=== PATIENT | male | born 1995 | race Caucasian/White ===

== ENCOUNTER 2019-12-02 17:45 | Emergency (ER) | payer OTHER, SELFPAY ==
--- NOTE | ~2019-12-02 | XR_ITS ---
EXAMINATION: XR thoracic spine 3V DATE: 12/02/2019 18:49 INDICATION: Upper back pain TECHNIQUE: AP, lateral and lateral swimmer's views of the thoracic spine were obtained. COMPARISON: None. FINDINGS: There is no fracture, dislocation, or subluxation. The vertebral body heights, alignment, a nd intervertebral disc spaces are normal. The paravertebral soft tissues are unremarkable. IMPRESSION: 1. No acute osseous abnormality. Reviewed, dictated and finalized at location A.
--- NOTE | 2019-12-02 17:57 | ED.GENADULT ---
HPI - General Adult General Chief complaint: Neck Pain/Injury Stated complaint: Stages of numbness Time Seen by Provider: 12/02/19 17:58 Source: patient Mode of arrival: ambulatory Limitations: no limitations History of Present Illness HPI narrative: 23-year-old male patient presents to the [facility] with complaints of neck and back pain for the past week. Patient states he was also getting a sensation of numbness and tingling over his entire body which was concerning. Patient states about a week ago he was sitting at his computer and felt what he called a pop It his brain . Patient states that he googled his symptoms and was concerned about an aneurysm and went to [facility] emergency department at that time and got a head neck CT which he was told was negative and looked okay. Patient states that he does a lot of wrestling and is very active during the day. 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 Patient states he has injured his neck and has had multiple neck sprains in the past along with chronic back injuries and some concussions in the past. Patient denies any new injury recently since his pain has started. Patient states he still having the numbness and tingling pain all over his body. Patient denies taking anything for his symptoms. Patient states that he does have back pain at times. Related Data Home Medications Medication Instructions Recorded Confirmed No Home Medications 12/02/19 12/02/19 Allergies Allergy/AdvReac Type Severity Reaction Status Date / Time No Known Allergies Allergy Verified 12/02/19 18:16 Review of Systems Review of Systems: Narrative: CONSTITUTIONAL: Denies fever, chills, or sweats. EYES: Denies visual changes, redness, or discharge. ENT: Denies rhinorrhea, congestion, sore throat, or otalgia. CARDIOVASCULAR: Denies chest pain, palpitations, or edema. RESPIRATORY: Denies cough or dyspnea. GASTROINTESTINAL: Denies abdominal pain, nausea, vomiting, or diarrhea. GENITOURINARY: Denies dysuria or hematuria. SKIN: Denies rash or itching. MUSCULOSKELETAL: Positive back pain, denies joint pain, or myalgia. NEUROLOGIC: Denies headache, positive intermittent numbness, and weakness. PSYCHIATRIC: Denies anxiety or depression. PMFSH Comments At the time of my signature I agree with nursing past medical history, surgical, social, and family history. There is no relevant family history pertinent to the presenting complaint. Exam Narrative: Exam Narrative: GENERAL: Well-appearing, well-nourished, and in no acute distress. HEAD: Normocephalic, atraumatic. EYES: PERRLA and EOMI. ENT: Nares clear, no rhinorrhea or epistaxis. Mucous membranes moist. NECK: Supple. No lymphadenopathy CHEST: Clear to auscultation. No respiratory distress. HEART: Regular rate and rhythm. No murmur heard. Normal peripheral pulses. ABDOMEN: Soft, nontender, nondistended, normal active bowel sounds. EXTREMITIES: Normal range of motion. No edema. BACK: Patient is able to ambulated without assistance. Pt is seated on the stretcher in no obvouis distress. No surface trauma noted. muscle tenderness and spasm noted to Palpation along the left scapular area. Patient does have some popping to the thoracic spine with movement and manipulation which he states does cause some of his symptoms to return at times no step-offs or deformity noted to the cervical, thoracic or lumbar spine to firm Palpation at the midline. No CVA tenderness to percussion. No saddle anesthesia. ROM: able to stand erect. Normal flexion, extension, Lateral bending and rotation without limitation or complaint of pain. SKIN: Warm, dry, no rash. NEURO: No focal deficits. Alert and oriented x3. Course Reevaluation(s) Reevaluation #1: Reevaluated patient after his x-ray had resulted. Notified him that there is no acute abnormalities noted in the x-ray today. Discussed with patient that on exam we did notice some muscle spasms w
[2019-12-02 17:58] VITALS: BP 116/53; PULSE 62; RESP 16; TEMP 36.7; O2SAT 100
== END 2019-12-02 19:25 | disposition home or self-care (01) ==
PROVIDERS: Emergency Provider Nurse Practitioner Family
DX: M62.830 Muscle spasm of back (principal)
CPT/HCPCS: 72072; 99213; G0463

== ENCOUNTER 2022-09-05 17:55 | Emergency (ER) | payer MEDICAID, SELFPAY ==
--- NOTE | ~2022-09-05 | XR_ITS ---
EXAMINATION: XR thoracic spine 3V DATE: 09/05/2022 19:22 INDICATION: Back pain. TECHNIQUE: 3 views of thoracic spine on 4 radiographs were obtained. COMPARISON: Thoracic spine radiographs 12/02/2019 FINDINGS: There is 10 degrees levoscoliosis of thoracic spine. Vertebral body heights and interverteb ral disc heights are normal. A staple line overlies right lung upper lobe. IMPRESSION: 1. Thoracic levoscoliosis. Reviewed, dictated and finalized at location A. RETE FOREMAN IMPRESSION: 1. Thoracic levoscoliosis.
--- NOTE | ~2022-09-05 | XR_ITS ---
EXAMINATION: XR ribs LT 2V DATE: 09/05/2022 19:22 INDICATION: Back pain. TECHNIQUE: 2 views of the left ribs on 3 radiographs were obtained. COMPARISON: None. FINDINGS: There is no left-sided pneumonia, pleural effusion, or pneumothorax. The heart size is norm al. IMPRESSION: 1. No rib fracture. Reviewed, dictated and finalized at location A. T END MECHANIC IMPRESSION: 1. No rib fracture.
[2022-09-05 18:10] VITALS: BP 120/71; PULSE 74; RESP 16; TEMP 37.2; O2SAT 99
--- NOTE | 2022-09-05 18:59 | ED.BACK ---
HPI - Back Pain/Injury General Chief Complaint: Back Pain/Injury Stated Complaint: Called for back X ray Time Seen by Provider: 09/05/22 18:25 Source: patient, RN notes reviewed and old records reviewed Mode of arrival: ambulatory Limitations: no limitations History of Present Illness HPI Narrative: 26 year old male presents to [facility] care with complaints of left flank pain and mid back pain which started last night. Patient reports that when he moves a certain way he has pain in the left flank region. Patient reports that he has had a kidney stone in past about 2020. Patient reports that he wrestles and he also rides dirt bikes, has not had any known injury to his back or to rib area. Patient denies any radiation of pain down legs or any numbness or tingling to legs, no saddle paraesthesia, no difficulty passing urine or stool. Patient has no midline spinal pain or any paraspinal tenderness on palpation MD elicited complaint: back pain and other (left flank area) Pertinent past history: kidney stones and other (previous rib fracture on right with punctured lung) Onset (ago): day(s) (last night) Treatments prior to arrival: NSAIDS Work related injury: No Related Data Allergies Allergy/AdvReac Type Severity Reaction Status Date / Time No Known Allergies Allergy Verified 09/05/22 18:21 Review of Systems Review of Systems: CONSTITUTIONAL: Denies fever, chills, or sweats. CARDIOVASCULAR: Denies chest pain, palpitations, or edema. RESPIRATORY: Denies cough or dyspnea. GASTROINTESTINAL: Denies abdominal pain, nausea, vomiting, or diarrhea. GENITOURINARY: Denies dysuria or hematuria. SKIN: Denies rash or itching. MUSCULOSKELETAL: Reports thoracic back pain. left flank pain, no joint pain or myalgia. NEUROLOGIC: Denies headache, numbness, or weakness. All systems reviewed & are unremarkable except as noted in HPI and below PMFSH Past Medical History Medical History (Updated 09/06/22 @ 00:00 by Julián Kirkpatrick) Anxiety Fracture of rib of right side Pneumothorax Surgical History Surgical History [place] teeth extracted Social History Social History (Updated 09/06/22 @ 11:06 by Jeny Lal NP) Smoking status: Former smoker Alcohol intake: unknown Substance use type: marijuana Gender identity (if verbalized by the patient): Male Comments At time of signature, agree with nursing past medical, surgical, social and family history. There is no relevant family history pertinent to the presenting complaint Exam Narrative: GENERAL: Well-appearing, well-nourished, and in no acute distress. HEAD: Normocephalic, atraumatic. EYES: PERRLA and EOMI. NECK: Supple. No lymphadenopathy. CHEST: Clear to auscultation. No respiratory distress. SAO2 99% on room air HEART: Regular rate and rhythm. Distal pulses palpable and equal, cap refill <3 seconds ABDOMEN: Soft, nontender, nondistended, normal active bowel sounds, no palpable or pulsatile masses. No CVA tenderness MUSCULOSKELETAL: Normal range of motion and strength in all extremities; 5/5 strength with hip flexion and extension, dorsiflexion and extension, knee flexion and extension, plantar flexion and extension. Normal sensation in dermatomal distributions with sensitivity to light touch and pain. No midline back tenderness to palpation. No paraspinal tenderness. Transfers from lying to sitting to standing.Pain mid back area and left flank pain, reports muscle tightness SKIN: Warm, dry, no rash. No ecchymosis, erythema, open wounds to back. NEURO: No focal deficits. Alert and oriented x3. Reflexes intact. Normal gait. PSYCH: Normal mood and affect Course Course Emergency Course: Patient is aware of diagnosis, understands and agrees to treatment plan. Anticipatory guidance given. Patient agrees to follow-up as directed and is aware of reasons to seek care at the emergency department. Portions of
== END 2022-09-05 19:45 | disposition home or self-care (01) ==
PROVIDERS: Emergency Provider Registered Nurse; PCP Family Medicine
DX: M54.6 Pain in thoracic spine (principal); R10.9 Unspecified abdominal pain; F12.90 Cannabis use, unspecified, uncomplicated
CPT/HCPCS: 71100; 72072; 81003; 99214; G0463

== ENCOUNTER 2022-12-26 18:31 | Emergency (ER) | payer OTHER, MEDICAID, SELFPAY ==
[2022-12-26 18:39] VITALS: BP 101/82; PULSE 69; RESP 16; TEMP 37.1; O2SAT 99
--- NOTE | 2022-12-26 18:47 | ED.DENTAL ---
HPI - Dental/Oral General Chief complaint: Dental/Oral Stated complaint: mouth and jaw pain Time Seen by Provider: 12/26/22 18:45 Source: patient, RN notes reviewed and old records reviewed Mode of arrival: ambulatory Limitations: no limitations History of Present Illness HPI Narrative: 26 year old male who presents to [facility] care with complaints of dental pain and Periodontal disease and frontal head pain. Patient states that dental pain is causing an explosion in his head. Patient states that he has had pain in his right back molars for 5 days with a hole noted in the very posterior tooth #31. Patient has noted periodontal disease and patient reports that he has had problems in his gums for some time.Patient reports that he has been taking Ibuprofen and also Tylenol for his discomfort with minimal pain relief. MD Complaint: tooth pain (periodontal disease) Onset (ago): day(s) (5) Treatment prior to arrival: oral analgesic Related Data Allergies Allergy/AdvReac Type Severity Reaction Status Date / Time No Known Allergies Allergy Verified 12/26/22 18:43 Review of Systems Review of Systems: CONSTITUTIONAL: Denies fever, chills, or sweats. ENT: Denies rhinorrhea, congestion, sore throat, or otalgia. Reports dental pain to lower right back molar with hole noted in tooth. also pain swelling to upper left gums,evidence of periodontal disease present. CARDIOVASCULAR: Denies chest pain, palpitations, or edema. RESPIRATORY: Denies cough or dyspnea. SKIN: Denies rash or itching. MUSCULOSKELETAL: Denies myalgia. NEUROLOGIC: Reports headache All systems reviewed & are unremarkable except as noted in HPI and below PMFSH Past Medical History Medical History (Updated 12/27/22 @ 00:01 by Julián Kirkpatrick) Anxiety Fracture of rib of right side Pneumothorax Surgical History Surgical History [place] teeth extracted Social History Social History (Updated 09/06/22 @ 11:06 by Jeny Lal NP) Smoking status: Former smoker Alcohol intake: unknown Substance use type: marijuana Gender identity (if verbalized by the patient): Male Comments At time of signature, agree with nursing past medical, surgical, social and family history. There is no relevant family history pertinent to the presenting complaint Exam Narrative: GENERAL: Well-appearing, well-nourished, and in no acute distress. HEAD: Normocephalic, atraumatic. EYES: PERRLA and EOMI. ENT: Nares clear, no rhinorrhea or epistaxis. Mucous membranes moist. broken teeth, caries noted with hole noted in #31 tooth, periodontal disease noted to gums with pain and swelling to left upper gums NECK: Supple. no lymphadenopathy, no [place] angina, no trismus noted. CHEST: Clear to auscultation. No respiratory distress.SAO2 99% on room air HEART: Regular rate and rhythm. No murmur heard. Normal peripheral pulses. SKIN: Warm, dry, no rash. NEURO: No focal deficits. Alert and oriented x3. Course Course Emergency Course: Patient is aware of diagnosis, understands and agrees to treatment plan. Anticipatory guidance given. Patient agrees to follow-up as directed and is aware of reasons to seek care at the emergency department. Portions of this record may have been created with voice recognition software Level of Care: Express Care Visit Vital Signs Vital signs: Vital Signs Temperature 37.1 C 12/26/22 18:39 Pulse Rate 69 12/26/22 18:39 Respiratory Rate 16 12/26/22 18:39 Blood Pressure 101/82 12/26/22 18:39 Pulse Oximetry 99 12/26/22 18:39 Oxygen Delivery Room Air 12/26/22 18:39 Temperature 37.1 C 12/26/22 18:39 Pulse Rate 69 12/26/22 18:39 Respiratory Rate 16 12/26/22 18:39 Blood Pressure 101/82 12/26/22 18:39 Pulse Oximetry 99 12/26/22 18:39 Oxygen Delivery Room Air 12/26/22 18:39 Reviewed MDM - Dental/Oral MDM Narrative Medical decision making narrative:
== END 2022-12-26 19:13 | disposition home or self-care (01) ==
PROVIDERS: Emergency Provider Registered Nurse
DX: K08.89 Other specified disorders of teeth and supporting structures (principal); K05.6 Periodontal disease, unspecified
CPT/HCPCS: 99213; G0463

== ENCOUNTER 2023-01-06 09:58 | Emergency (ER) | payer OTHER, MEDICAID, SELFPAY ==
--- NOTE | ~2023-01-06 | XR_ITS ---
XR humerus RT 01/06/2023 10:21 INDICATION: Right arm pain PROCEDURE: 2 views right humerus COMPARISON: No prior studies for comparison. FINDINGS: Fracture, dislocation or subluxation is not identified. The soft tissues appear within norm al limits. No foreign bodies are identified. IMPRESSION: 1: NO ACUTE BONE OR JOINT ABNORMALITY IDENTIFIED. Reviewed, dictated and finalized at location L.
[2023-01-06 10:03] VITALS: BP 119/66; PULSE 56; RESP 16; TEMP 36.3; O2SAT 100
--- NOTE | 2023-01-06 10:22 | ED.UPPEXIN ---
HPI - Extremity Injury (Upper) General Chief Complaint: Extremity Injury, Upper Stated Complaint: right bicept injury Source: patient and RN notes reviewed Limitations: no limitations History of Present Illness HPI narrative: Patient is a 27-year-old male with complaints of right upper arm pain. Patient states that his pain started after lifting a night stand on Thursday. He reports constant soreness with worsening pain with movement and positioning of his arm. Patient states that he believes he injured his bicep. He denies numbness; sensation is intact. He denies limited range of motion of his right shoulder, elbow, or wrist. There is no notable swelling or deformity. Related Data Allergies Allergy/AdvReac Type Severity Reaction Status Date / Time No Known Allergies Allergy Verified 12/26/22 18:43 Review of Systems Review of Systems: CONSTITUTIONAL: Denies fever, chills, or sweats. EYES: Denies visual changes, redness, or discharge. ENT: Denies otalgia and sore throat CARDIOVASCULAR: Denies chest pain, palpitations, or edema. RESPIRATORY: Denies cough or dyspnea. GASTROINTESTINAL: Denies abdominal pain, nausea, vomiting, or diarrhea. GENITOURINARY: Denies dysuria or hematuria. SKIN: Denies rash or itching. MUSCULOSKELETAL: Denies back pain. Reports right upper arm pain. NEUROLOGIC: Denies headache, numbness, or weakness. Pertinent positives per HPI. PMFSH Past Medical History Medical History Anxiety Fracture of rib of right side Pneumothorax Surgical History Surgical History [place] teeth extracted Social History Social History Smoking status: Former smoker Alcohol intake: unknown Substance use type: marijuana Gender identity (if verbalized by the patient): Male Comments At the time of my signature, I reviewed and agree with the nursing past medical, surgical, social, and family history. There is no relevant family history pertinent to the patient complaint. Exam Narrative: GENERAL: This is a well-nourished, well-developed patient, in no apparent distress. HEAD: normocephalic, atraumatic. EYES: Sclera clear/white. Vision is grossly intact. EARS: External ears normal. Hearing grossly intact. NOSE: External nose normal with no obvious nasal discharge, nares without redness, no rhinorrhea. THROAT: Mucous membranes moist, posterior pharynx clear. NECK: Neck supple, non-tender without lymphadenopathy, masses or thyromegaly. CARDIOVASCULAR: Regular rate and rhythm without murmurs, gallops, or rubs. RESPIRATORY: Clear to auscultation. Breath sounds equal bilaterally. No wheezes, rales, or rhonchi. GASTROINTESTINAL: Abdomen soft, non-tender, nondistended. Bowel sounds are active. No hepato-splenomegaly, or palpable masses. No guarding. SKIN: warm, intact with no suspicious lesions or rash, good texture and turgor. NEURO: awake, alert, and oriented to person, place and time. There were no obvious focal neurologic abnormalities. EXTREMITIES: No clubbing, cyanosis, or edema. Right lateral arm tenderness, no effusion or edema noted. Sensation intact. Patient has full range of motion of right shoulder, elbow, wrist. BACK: Nontender without deformity or crepitance. No flank tenderness. Course Course Level of Care: Express Care Visit Vital Signs Vital signs: Vital Signs Temperature 97.4 F L 01/06/23 10:03 Pulse Rate 56 L 01/06/23 10:03 Respiratory Rate 16 01/06/23 10:03 Blood Pressure 119/66 01/06/23 10:03 Pulse Oximetry 100 01/06/23 10:03 Oxygen Delivery Room Air 01/06/23 10:03 Temperature 97.4 F L 01/06/23 10:03 Pulse Rate 56 L 01/06/23 10:03 Respiratory Rate 16 01/06/23 10:03 Blood Pressure 119/66 01/06/23 10:03 Pulse Oximetry 100 01/06/23 10:03 Oxygen Delivery Room Air 01/06/23 10:03 rev
== END 2023-01-06 10:56 | disposition home or self-care (01) ==
PROVIDERS: Emergency Provider Nurse Practitioner; PCP Family Medicine
DX: S46.111A Strain of muscle, fascia and tendon of long head of biceps, right arm, initial encounter (principal); X50.0XXA Overexertion from strenuous movement or load, initial encounter
CPT/HCPCS: 73060; 99213; A4565; G0463

== ENCOUNTER 2024-01-23 14:04 | Emergency (ER) | payer OTHER, SELFPAY ==
[2024-01-23 14:18] VITALS: BP 129/86; PULSE 63; RESP 16; TEMP 37.4; O2SAT 100
--- NOTE | 2024-01-23 14:27 | ED.DENTAL ---
HPI - Dental/Oral General Chief complaint: Dental/Oral Stated complaint: Toothache Time Seen by Provider: 01/23/24 14:27 Source: patient, RN notes reviewed and old records reviewed Mode of arrival: ambulatory Limitations: no limitations History of Present Illness HPI Narrative: 28-year-old male to Express Care for complaint of right lower molar pain for 3 days. Patient endorses history of having same tooth fractured while back while wrestling. Patient states that pain just started 3 days ago. [facility]. Patient called the dental school to inquire about getting appointment soon and was unable to. After the dental school advised him to be seen here for treatment. Patient denies fever, nausea, headache, ear pain. Patient able to tolerate fluids by mouth. Patient in no acute distress. Related Data Allergies Allergy/AdvReac Type Severity Reaction Status Date / Time No Known Allergies Allergy Verified 01/23/24 14:17 Review of Systems Review of Systems: All systems reviewed & are unremarkable except as noted in HPI and below Constitutional: Constitutional: Reports no additional constitutional complaints Eyes: Eyes: Reports no additional eye complaints ENT: Reports as per HPI and Reports dental pain ( Lower right molar) Cardiovascular: Cardiovascular: Reports no additional cardiovascular complaints, Denies chest pain and Denies dyspnea Respiratory: Respiratory: Reports no additional respiratory complaints, Denies cough and Denies dyspnea Musculoskeletal: Musculoskeletal: Reports no additional musculoskeletal complaints Neurologic: Reports system reviewed and no additional complaints, except as documented Psychiatric: Psychiatric: Reports no additional psychiatric complaints PMFSH Past Medical History Medical History Anxiety Fracture of rib of right side Pneumothorax Surgical History Surgical History [place] teeth extracted Social History Social History Smoking status: Former smoker Alcohol intake: unknown Substance use type: marijuana Gender identity (if verbalized by the patient): Male Comments At the time of my signature, I reviewed and agree with the nursing past medical, surgical, social, and family history. There is no relevant family history pertinent to the patient complaint. Exam Const: General: cooperative, healthy appearing, comfortable, no acute distress, alert and well nourished Nutritional Appearance: well nourished Orientation/consciousness: patient oriented x3 Limitations: no limitations HENMT: Head: normal to inspection Ears: external ears normal Face/Nose/Sinus: Normal external nose present, Normal nares present, normal facial exam, No erythema and No edema Face and sinus: normal facial exam, no erythema and no edema Mouth: Yes moist mucous membranes Teeth and gingiva: abnormal tooth and associated gingiva lower right second molar tender and with associated gingival edema Eyes: General: appearance normal, both eyes and all related structures Neck: Neck: normal visual inspection, full ROM and no meningeal signs Lymphatic: no lymphadenopathy noted and no lymphedema noted Chest: Chest palpation & inspection: normal inspection of the chest Resp: Effort & Inspection: normal respiratory effort and able to speak in complete sentences Auscultation: clear to auscultation bilaterally Cardio: Jugular venous distension: no JVD Rate: regular rate Rhythm: regular rhythm Back/Spine/Pelvis: Cervical Spine: cervical ROM normal Skin: General skin exam: normal color, no rashes or lesions noted and turgor normal Neuro: General: patient oriented x3, gait normal, moves all extremities and no meningeal signs Speech: normal speech Gait exam (Neuro): Nor
== END 2024-01-23 14:52 | disposition home or self-care (01) ==
PROVIDERS: Emergency Provider Nurse Practitioner Family; PCP Family Medicine
DX: K04.7 Periapical abscess without sinus (principal); S02.5XXA Fracture of tooth (traumatic), initial encounter for closed fracture; X58.XXXA Exposure to other specified factors, initial encounter; Z87.891 Personal history of nicotine dependence; F12.90 Cannabis use, unspecified, uncomplicated
CPT/HCPCS: 99213; G0463

== ENCOUNTER 2025-03-01 15:42 | Emergency (ER) | payer OTHER, SELFPAY ==
--- NOTE | ~2025-03-01 | XR_ITS ---
XR shoulder RT min 2V Ordering provider: Lori Pugh NP History: . pain after weight lighting . Comparison: None. FINDINGS: BONES: No acute fracture or dislocation. JOINT SPACES: The acromioclavicular joint is normal. The glenohumeral joint is normal. SOFT TISSUES: Normal. IMPRESSION: No acute osseous abnormality right shoulder. Reviewed, dictated and finalized at location A.
--- OUTSIDE RECORDS SUMMARY | 2025-03-01 15:45 | XMS_ITS | Referral Summary ---
Author Organization [place] [id number] Address [address] [place] [address] Care Team Providers Care Chemist Biological Name Role Phone Shahriar Barker MD Unavailable [phone] Carmelita Younger MD Primary Care Pro vider Allergies No known active allergies Medications acetaminophen 500 mg capsuleIndicati ons:Pain Take 2 capsules (1,000 mg total) by mouth every 6 (six) hours 30 tablet Active Additional Information Patient not taking.Reported on 05/09/2021 docusate sodium (COLACE) 100 mg capsuleIndicati ons:constipatio n Take 1 capsule (100 mg total) by mouth 2 (two) times a day Active Additional Information Patient not taking.Reported on 05/09/2021 Active Problems No known active problems Social History Tobacco Use Types Packs/Day Years Used Date Smoking Tobacco: Never Smokeless Tobacco: Former Sex and Gender Information Value Date Recorded Sex Assigned at Not on file Legal Sex Male 2:27 PM [employer]UN[employer] Gender Identity Not on file Sexual Orientation Not on file Last Filed Vital Signs Vital Sign Reading Time Taken Comments Blood Pressure 118/72 05/09/2021 3:12 PM CDT Pulse 77 05/09/2021 3:12 PM CDT Temperature 36.8 C (98.3 F) 05/09/2021 3:12 PM CDT Respiratory Rate 18 05/09/2021 3:12 PM CDT Oxygen Saturation 98% 05/09/2021 3:12 PM CDT Inhaled Oxygen Concentration - - Weight 61.2 kg (135 lb) 05/09/2021 3:12 PM CDT Height 162.6 cm (5' 4) 05/09/2021 3:12 PM CDT Body Mass Index 23.17 05/09/2021 3:12 PM CDT Plan of Treatment Not on file Insurance [employer] [facility] [employer] Advance Directives For more information, please contact: [phone] * Full Code (Latest Code Status on File) Date Activated Date Inactivated Comments 02/11/2021 11:34 AM 02/14/2021 7:42 PM Care Teams Chemist Biological Relationship Specialty Start Date End Date Carmelita Younger MD PCP - General 02/14/21 Shahriar Barker MD Surgeon Cardiothoracic Surgery 02/14/21
--- OUTSIDE RECORDS SUMMARY | 2025-03-01 15:45 | XMS_ITS | Encounter Summary ---
Author Organization [facility] Address [address] [facility] [place] [address] Phone Care Team Providers Care Rag Collector Name Role Phone Breezy Russell MD Unavailable Deepak Hugo APRN, RECREATION PROGRAM COORDINATOR Primary Care Pr ovider Encounter Details Date Type Department Care Team (Late st Contact Info) Description 02/20/2025 Results Follow-Up [facility] - Family Medicine - [place] [address] [place] [address] Unique Mcgraw, LITHOPRESS OPERATOR, RECREATION PROGRAM COORDINATOR 2 [facility], [address] [place] [address] XR LUMBAR SPINE MINIMUM 4 VIEWS Social History Tobacco Use Types Packs/Day Years Used Date Smoking Tobacco: Former Cigarettes 0.5 5 0 02/04/2010 - 02/04/2015 E-Vapor with Nicotine Smokeless Tobacco: Never Alcohol Use Standard Drinks/Week Comments Not Currently 0 (1 standard drink = 0.6 oz pur e alcohol) [facility] Utilities Answer Date Recorded In the past 12 months has e electric, gas, oil, or water company threatened to shut off services in your home? No 04/12/2024 Social Connection and Isolation Panel Answer Date Recorded In a typical week, how many times do you talk on the phone with family, friends, or neighbors? Three times a week 04/12/2024 How often do you get togethe r with friends or relatives? Once a week 04/12/2024 How often do you attend chur ch or voodoo services? Never 04/12/2024 Do you belong to any clubs o r organizations such as hoahaoism groups, unions, fraternal or athletic groups, or school groups? Yes 04/12/2024 How often do you attend meet ings of the clubs or organizations you belong to? Never 04/12/2024 Are you , , di vorced, , never , or living with a partner? Patient declined 04/12/2024 AUDIT-C Answer Date Recorded Q1: How often do you have a drink containing alcohol? Never 04/12/2024 Q2: How many drinks containi ng alcohol do you have on a typical day when you are drinking? Patient does not drink Q3: How often do you have si x or more drinks on one occasion? Never 04/12/2024 Overall Financial Resource Strain (CARDIA) Answe r Date Recorded How hard is it for you to pa y for the very basics like food, housing, medical care, and heating? Not very hard 04/12/2024 PHQ-2 Answer Date Recorded Total Score - Questions 1-9 0 06/0 01/2022 [facility] - Occupational Stress Questionnaire Answer Date Recorded Do you feel stress - tense, restless, nervous, or anxious, or unable to sleep at night because your mind is troubled all the time - these days? Rather much 04/12/2024 Exercise Vital Sign Answer Date Recorde d On average, how many days pe r week do you engage in moderate to strenuous exercise (like a brisk walk)? 7 days 04/12/2024 On average, how many minutes do you engage in exercise at this level? 90 min 04/12/2024 Hunger Vital Sign Answer Date Recorded Within the past 12 months, y ou worried that your food would run out before you got the money to buy more. Sometimes true Within the past 12 months, t he food you bought just didn't last and you didn't have money to get more. Never true PRAPARE - Transportation Answer Date Re corded In the past 12 months, has l ack of transportation kept you from medical appointments or from getting medications? No 03/18 In the past 12 months, has l ack of transportation kept you from meetings, work, or from getting things needed for daily living? No 04/12/2024 Housing Stability Vital Sign Answer Mina e Recorded In the last 12 months, was t here a time when you were not able to pay the mortgage or rent on time? No 04/12/2024 In the past 12 months, how m any times have you moved where you were living? 0 04/12/2024 At any time in the past 12 m [facility], were you homeless or living in a usp (including now)? No 04/12/2024 Sexually Active Control Partners Comments Yes Female Sex and Gender Information Value Date Recorded Sex Assigned at Male 03/30/2023 7:08 AM CDT Legal Sex Male 11:56 PM CDT Gender Identity Male 03/30/2023 7:08 AM CDT Sexual Orientation Not on file documented as of this encounter Progress Notes * Unique Mcgraw APRN, CNP - 02/20/2025 8:45 AM CDT No acute findings. No change since last xray of lumbar spine. Noted on xray was a moderate amount of stool. Increase daily intake of fiber. documented in this encounter Miscellaneous Notes * Telephone Encounter - Kayla Leiva RN - 02/20/2025 9:14 AM CDT My Chart message sent to patient. documented in this encounter Plan of Treatment Upcoming Encounters Date Type Department Care Team (Late st Contact Info) Description 04/11/2025 1:00 PM CDT Office Visit [facility] - Family Medicine - [place] [address] [place] [id number] Deepak Hugo APRN, RECREATION PROGRAM COORDINATOR #2 [facility] [address] [place] [address] documented as of this encounter Visit Diagnoses Not on filedocumented in this encounter Additional Health Concerns Assessment Noted Time PHQ-9 Depression Total Score: 0 05/22/20 21 4:00 PM CDT documented as of this encounter Care Teams Rag Collector Relationship Specialty Start Date End Date Deepak Hugo APRN, RECREATION PROGRAM COORDINATOR #[address] [address] PCP - General Advanced Practice Nurse 04/12/24 Breezy Russell MD #[address] [address] Consulting Physician Colon and Rectal Surgery 03/13/23 documented as of this encounter
--- OUTSIDE RECORDS SUMMARY | 2025-03-01 15:45 | XMS_ITS | Clinical Summary ---
Author Organization [facility] Address [address] [facility] [place] [address] Care Team Providers Care Development Team Lead Name Role Phone Anant Ken MD Primary Care Provider [phone] Source Comments [facility],non-[facility] Affiliates and Associated Physician Practices is amultiple site organization consisting of ambulatory clinics and hospital sitesin [place], [place], [place] and [place]. This disclosure is being madepursuant to the Care Everywhere program and may not contain all information available regarding this patient. Last updated 18.[facility] Social History Tobacco Use Types Packs/Day Years Used Date Smoking Tobacco: Never Assessed Sex and Gender Information Value Date Recorded Sex Assigned at Not on file Legal Sex Male 2:43 PM CDT Gender Identity Not on file Sexual Orientation Not on file Plan of Treatment Health Maintenance Due Date Last Done Comments HIV SCREENING 12/29/2010 HEPATITIS C SCREENING 12/25/2013 DTAP/TDAP/TD VACCINES (1 - Tdap) 12/29/2014 HEPATITIS B VACCINE (1 of 3 - 19+ 3-dose series) 12/29/2014 HPV VACCINE (1 - 3-dose SCDM series) 12/29/2022 COVID-19 VACCINE ( - 2023-2 5 season) 2024 DEPRESSION SCREENING 08/17/2024 INFLUENZA VACCINE (#1) 2025 ZOSTER VACCINE (1 of 2) 12/29/2045 HIB VACCINE Aged Out No longer eligi ble based on patient's age to complete this topic MENINGOCOCCAL (Group B) VACC INE SHARED DECISION-MAKING Aged Out No longer eligibl e based on patient's age to complete this topic MENINGOCOCCAL GROUPS A/C/Y/W VACCINE Aged Out No longer eligible b ased on patient's age to complete this topic PNEUMOCOCCAL VACCINE Aged Out No long er eligible based on patient's age to complete this topic Insurance MEDICAID - [place] [employer] HE[employer] MEDICAID - OUT OF STATE Care Teams Development Team Lead Relationship Specialty Start Date End Date Anant Ken MD [address] [place] [address] PCP - General 09/20/19
--- OUTSIDE RECORDS SUMMARY | 2025-03-01 15:45 | XMS_ITS | Clinical Summary ---
Author Organization [facility] Address [address] [place] [address] Phone Care Team Providers Care Preventative Maintenance Technician Name Role Phone Breezy Russell MD Unavailable Deepak Hugo APRN, ORTHOPHOTOGRAPHY TECHNICIAN Primary Care Pr ovider Allergies Active Allergy Reactions Criticality Noted Date Comments Cinnamon Nausea Low 08/12/2021 [place] (Diagnostic) Swelling,Other ( see Comments) Medium 04/12/2024 burning Medications tiZANidine (ZANAFLEX) 2 MG TabletIndication s:Right lumbar pain Take 1 Tablet by mouth 3 times daily. 90 Tablet 01/04/2025 Active Active Problems Problem Noted Date Diagnosed Date Non-recurrent bilateral ingu inal hernia without obstruction or gangrene 03/30/2023 Tobacco dependence 02/04/2021 Osteoarthritis 02/04/2021 Anxiety 02/03/2021 Pneumothorax, closed, traumatic 02/03/2021 Encounters Date Type Department Care Team Description 02/20/2025 Results Follow-Up [facility] Medical [facility] - Family Medicine [facility] [address] [place] [address] Unique Mcgraw, SIX HORSE HITCH DRIVER, ORTHOPHOTOGRAPHY TECHNICIAN XR LUMBAR SPINE MINIMUM 4 VIEWS 02/07/2025 11:30 AM CDT - 02/07/2025 11:59 PM CDT [facility] [address] [place] [address] Unique Mcgraw, SIX HORSE HITCH DRIVER, ORTHOPHOTOGRAPHY TECHNICIAN Discharge Disposition: Discharged to home or Selfcare 02/07/2025 Travel 01/04/2025 1:30 PM CDT Office Visit [facility] - Family Medicine - [place] [address] [place] [address] Unique Mcgraw, SIX HORSE HITCH DRIVER, ORTHOPHOTOGRAPHY TECHNICIAN Right lumbar pain (Primary Dx); Insomnia, unspecified type Discharge Disposition: Discharged to home or Selfcare 01/04/2025 Travel from Last 3 Months Immunizations Immunization Administration Dates Next Due Covid-19 Vaccine, Vector-nr, Rs-ad26, Pf, 0.5 Ml ([employer]) 04/10/2021 Family History Medical History Relation Name Comments No Known Problems Father Bipolar Disorder Mother Chronic Obstructive Pulmonary Disease Mother Cancer Paternal Grandfather Skin Cancer Paternal Grandfather No Known Problems Paternal Grandmother Bipolar Disorder Sister Depression Sister Relation Name Status Comments Father Alive Mother Alive Paternal Grandfather Alive Paternal Grandmother Alive Sister Alive Social History Tobacco Use Types Packs/Day Years Used Date Smoking Tobacco: Former Cigarettes 0.5 5 0 02/04/2010 - 02/04/2015 E-Vapor with Nicotine Smokeless Tobacco: Never Tobacco Cessation:Counseling Given: No Alcohol Use Standard Drinks/Week Comments Not Currently 0 (1 standard drink = 0.6 oz pur e alcohol) [facility] Utilities Answer Date Recorded In the past 12 months has [employer], oil, or water [employer] threatened to shut off services in your home? No 04/12/2024 Social Connection and Isolation Panel Answer Date Recorded In a typical week, how many times do you talk on the phone with family, friends, or neighbors? Three times a week 04/12/2024 How often do you get togethe r with friends or relatives? Once a week 04/12/2024 How often do you attend chur or congregational services? Never 04/12/2024 Do you belong to any clubs o r organizations such as taoism groups, unions, fraternal or athletic groups, or [...] 1-9 0 06/0 01/2022 [facility] - Occupational Stress Questionnaire Answer Date Recorded [...] any time in the past 12 m [place], were you homeless or living in a nursing home (including now)? No 04/12/2024 Sexually Active Control Partners Comments Yes Female Sex and Gender Information Value Date Recorded Sex Assigned at Male 03/30/2023 7:08 AM CDT Legal Sex Male 11:56 PM CDT Gender Identity Male 03/30/2023 7:08 AM CDT Sexual Orientation Not on file Last Filed Vital Signs Vital Sign Reading Time Taken Comments Blood Pressure 120/76 01/04/2025 1:45 PM CDT Pulse 81 01/04/2025 1:45 PM CDT Temperature 36.4 C (97.5 F) 01/04/2025 1:45 PM CDT Respiratory Rate 16 01/04/2025 1:45 PM CDT Oxygen Saturation 98% 01/04/2025 1:45 PM CDT Inhaled Oxygen Concentration - - Weight 64.9 kg (143 lb 1.6 oz) 01/04/2025 1:45 P M CDT Height 165.1 cm (5' 5) 01/04/2025 1:45 PM CDT Body Mass Index 23.81 01/04/2025 1:45 PM CDT Plan of Treatment Upcoming Encounters Date Type Department Care Team (Late st Contact Info) Description 04/11/2025 1:00 PM CDT [facility] Visit [facility] - Family Medicine [facility] [address] [place] [address] Deepak Hugo, SIX HORSE HITCH DRIVER, ORTHOPHOTOGRAPHY TECHNICIAN #[address] [address] Health Maintenance Due Date Last Done Comments TdaP Immunization 1995 Human Papillomavirus (HPV) Immunization (1 - Male 3-dose series) 12/29/2010 Hepatitis B Immunization (1 of 3 - 19+ 3-dose series) 12/29/2014 SARS-COV-2 Immunization ( season) 2024 04/10/2021 Influenza Immunization (#1) 2025 Respiratory Syncytial Virus (RSV) Immunization (Adult) (1 - 1-dose 75+ series) 12/29/2070 Hepatitis C Virus (HCV) Screening Completed 021 Meningococcal Immunization (ACWY) Aged Out No longer eligible based on patient's age to complete this topic Pneumococcal Immunization Combined Aged Out No longer eligible based on patient's age to complete this topic Rotavirus Immunization Aged Out No lo nger eligible based on patient's age to complete this topic Medical Devices Implanted Type Area Wool Washing Machine Operator Device Identifier Shelf Expiration Date Model / Serial / Lot Staple Tacker [employer]ix At - [id number] Implanted:Qty : 1 on 03/30/2023 by Breezy Russell MD at [facility] IMPLANT Bilateral: Inguinal [employer] 10/14/2024 [id number] / [id number] / [id number] Mesh Srg 3dmax 6x4in Groin Right Contour Seal Edge Strl Polyp Lg 3d Curve Lapscp Inguinal Hernia - [id number] Implanted:Qty : 1 on 03/30/2023 by Breezy Russell MD at [facility] IMPLANT Left: Inguinal [employer] 10/14/2027 [id number] / [id number] / [id number] Mesh Srg 3dmax 6x4in Groin Left Contour Seal Edge Strl Polyp Lg 3d Curve Lapscp Inguinal Hernia - [id number] Implanted:Qty : 1 on 03/30/2023 by Breezy Russell MD at [facility] IMPLANT Right: Inguinal [employer] 10/14/2027 [id number] / [id number] / [id number] Procedures Procedure Name Priority Date/Time Associated Diagnosis Comments XR LUMBAR SPINE MINIMUM 4 VIEWS Routine 02/07/2025 12:23 PM CDT Right lumbar pain HEPATITIS PANEL ACUTE (AHP) Routine 08/12/2021 2:09 PM AGRICULTURAL EQUIPMENT SALESPERSON Visit for annual health examination (Adult) from Last 3 Months or Most Recently Relevant to Health Maintenance Results * XR LUMBAR SPINE MINIMUM 4 VIEWS (02/07/2025 12:23 PM CDT) Anatomical Region Laterality Modality Spine, L-spine N/A Digital Radiogra phy 02/17/2025 4:18 PM CDT Impressions 02/17/2025 4:21 PM CDT IMPRESSION: Lumbar vertebral body heights and anterior-posterior alignment are similar when compared to the previous radiographs dated 04/04/2017. Narrative 02/17/2025 4:21 PM CDT EXAM DESCRIPTION: XR LUMBAR SPINE MINIMUM 4 VIEWS REASON FOR STUDY: pt c/o lower back pain when stand for long period of time x 2 years. 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 pt report RT hip sits higher then LT. no injury or hx of surgery TECHNIQUE: Frontal, lateral, bilateral oblique and cone-down radiographic view(s) of the lumbar spine. COMPARISON: Lumbar spine radiographs dated 04/04/2017. FINDINGS: The lumbar vertebral body heights and anterior-posterior alignment is similar when compared to the previous radiographs dated 04/04/2020 the. Relative preservation of the intervertebral disc heights. Moderate amount of stool projects over the imaged abdomen and pelvis. Linear radiopaque density projecting over the pelvis could be summation or bowel debris. Alternatively this could be surgical clips. Request clinical correlation. THIS IS AN ELECTRONICALLY VERIFIED FINAL REPORT 02/17/2025 4:18 PM - Electronically signed by Dakota Rodríguez D.O. AP: AP Report ID: [id number] Reading Location: [id number] Procedure Note Dakota Rodríguez DO - 02/17/2025 EXAM DESCRIPTION: XR LUMBAR SPINE MINIMUM 4 VIEWS REASON FOR STUDY: pt c/o lower back pain when stand for long period of time x 2 years. 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 pt report RT hip sits higher then LT. no injury or hx of surgery TECHNIQUE: Frontal, lateral, bilateral oblique and cone-down radiographic view(s) of the lumbar spine. COMPARISON: Lumbar spine radiographs dated 04/04/2017. FINDINGS: The lumbar vertebral body heights and anterior-posterior alignment is similar when compared to the previous radiographs dated 04/04/2020 the. Relative preservation of the intervertebral disc heights. Moderate amount of stool projects over the imaged abdomen and pelvis. Linear radiopaque density projecting over the pelvis could be summation or bowel debris. Alternatively this could be surgical clips. Request clinical correlation. THIS IS AN ELECTRONICALLY VERIFIED FINAL REPORT 02/17/2025 4:18 PM - Electronically signed by Dakota Rodríguez D.O. AP: AP Report ID: [id number] Reading Location: [place] [address] IMPRESSION: Lumbar vertebral body heights and anterior-posterior alignment are similar when compared to the previous radiographs dated 04/04/2017. Unique N Mariluz CIFUENTESN, EVERARDO IMG DIAGNOSTIC ORDERABLES Final Result * HEPATITIS PANEL ACUTE (AHP) (08/12/2021 2:09 PM AGRICULTURAL EQUIPMENT SALESPERSON) HEPATITIS A IGM ANTIBODY NON DETECTED NON DETECTED [place] [id number] 08/12/2021 11:14 PM AGRICULTURAL EQUIPMENT SALESPERSON [facility] Comment: IGM Antibodies to HAV not detected. Does not exclude early acute or recovered HAV infection. HEP B CORE AB (IGM) NON DETECTED NON DETECTED [place] [id number] 08/12/2021 11:14 PM AGRICULTURAL EQUIPMENT SALESPERSON [facility] Comment:IGM anti-HBC not det ected. Does not exclude the possibility of exposure to or infection with HBV. HEPATITIS B SURFACE ANTIGEN NON DETECTED NON DETECTED [place] [id number] 08/12/2021 11:14 PM [facility] Comment:A nonreactive test r esult does not exclude the possibility of exposure to or infection with Hepatitis B virus. A nonreactive test result in individuals with prior exposure to hepatitis B may be due to antigen levels below the detection limit of this assay or lack of antigen reactivity to the antibodies in this assay. hepatitis C antibody 0.21 <1 S/[facility] [id number] 08/12/2021 11:14 PM AGRICULTURAL EQUIPMENT SALESPERSON [facility] Comment: Signal/Cutoff ratio < 0.79 is Nondetected Signal/Cutoff ratio 0.80-0.99 is Grayzone Signal/Cutoff ratio > 0.99 is Detected Supplemental assays are recommended if signal/cutoff ratio is >/=1.00. Signal/cutoff ratio result >/= 5.00 is 97% predictive of positivity for recombinant immunoblot assay (RIBA) and will be reported to the [place] Department of Public Health as required. Blood Venipuncture / Unknown 08/12/2021 2:09 PM AGRICULTURAL EQUIPMENT SALESPERSON 08/12/2021 2:09 PM AGRICULTURAL EQUIPMENT SALESPERSON us Rubio Baum MD HEMATOLOGY ORDERABLES Final Resu lt [facility] [address] [place] [address], [place] from Last 3 Months or Most Recently Relevant to Health Maintenance Insurance MEDICAID [employer] MEDPAY NELSY OL[place]IRA [id number] Advance Directives * Full Code (Latest Code Status on File) Date Activated Date Inactivated Comments 02/03/2021 9:04 PM 02/08/2021 8:40 PM CPR-Full Aime atment: FULL ARREST: Attempt Resuscitation/CPR wit intubation and mechanical ventilation. PRE-ARREST: Use entire range of life support measures to stabilize the patient. Care Teams Preventative Maintenance Technician Relationship Specialty Start Date End Date Deepak Hugo APRN, ORTHOPHOTOGRAPHY TECHNICIAN #2 [facility] [address] [place] [address] PCP - General Advanced Practice Nurse 04/12/24 Breezy Russell MD #2 [facility] [address] [place] [address] Consulting Physician Colon and Rectal Surgery 03/13/23
--- OUTSIDE RECORDS SUMMARY | 2025-03-01 15:45 | XMS_ITS | Clinical Summary ---
Author Organization [place] [id number] [facility] Address [address] [place] [address] Care Team Providers Care Foreign Language Stenographer Name Role Phone Shahriar Barker MD Unavailable [phone] Carmelita Younger MD Primary Care Pro [...] on file Legal Sex Male 2:27 PM SWAT TEAM MEMBER Gender Identity Not on file Sexual Orientation Not on file Obstetrics History Last Filed Vital Signs Vital Sign Reading [...] Plan of Treatment Not on file Insurance [employer] [facility] [employer] Advance Directives For more information, please contact: [phone] * Full Code (Latest Code Status on File) Date Activated Date Inactivated Comments 02/11/2021 11:34 AM 02/14/2021 7:42 PM Care Teams Foreign Language Stenographer Relationship Specialty Start Date End Date Carmelita Younger MD PCP - General 02/14/21 Shahriar Barker MD Surgeon Cardiothoracic Surgery 02/14/21
--- OUTSIDE RECORDS SUMMARY | 2025-03-01 15:45 | XMS_ITS | Continuity of Care Document ---
Author Organization [facility] Address [address] [place] [address] Phone Care Team Providers Care Balance Wheel Motion Inspector Name Role Phone Ishmael Spence MD Unavailable Unavailable Allergies, Adverse Reactions, Alerts Substance Reaction Status Criticality No Known Allergies Active No Inform ation Procedures Procedure Date OFFICE/OUTPATIENT VISIT, NEW Alcohol and/or drug screening 3 Advance Directives Directive Yes / No Effective Date File Name No Information Encounters Encounter Description Practice Location Reason(s) For Visit Diagnoses Date Provider Providers Copied on Encounter [facility], [address], [place], [place], [address] , tel: [phone] Urgent Care No Information 3 Jordy Quiñones. [address], [place], [place], [address] , [place]. 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 [address], [place], [place], [address] , [place]. tel: [phone] Referring Provider: Ishmael Spence, [address], [place], [address] . 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 Doing well without issues or concerns today. S/P lung surgery 2016, secondary to fall with fractured ribs and punctured lung, states healed completely.Denies fever, chills, myalgias, fatigue, headache, rhinorrhea, sinus congestion, sore throat, cough, dyspnea, abd pain, nausea, emesis, diarrhea, loss of smell or taste, or known COVID exposure.Physical Exam:General: NADSkin: No rash or skin lesions noted on exposed skin.HEENT: Normocephalic, atraumatic, PERRLA, EOMI, conjunctiva and sclera clear, sinuses nontender bilat, nares patent, TM's clear bilat.O/P: Clear without exudate or enlargement.Neck: Supple, good ROM, no mass or thyromegaly.CV: RRR without murmur, rub, gallop.Lungs: Clear bilat without rales, rhonchi, wheeze. No respiratory distress.Abd: soft, nondistended, nontender, no mass/rebound/guarding, BS absent.: Normal male external genitalia, no hernia.Back: FROM, spine midline and nontender, no scoliosis or CVA tenderness.Extremities: FROM, moves all extremities spontaneously, transfers off and on exam table without undue difficulty or need for assistance, gait and station normal.Neuro: no focal deficits, CN 2-12 grossly intact, speech and hearing intact. FTN and tandem gait normal. Rhomberg negative.Psych: Awake, alert, conversant, cooperative, appropriate, pleasant, good eye contact, smiles, intact insight and memory. Functional Status Date Functional Assessmen t No Information Instructions Date Instruction Additional Infor mation No Information Assessments Type Assessment Date No Information Patient Care Teams Name Effective Dates (start - stop) Status Members No Information
[2025-03-01 15:46] VITALS: BP 120/76; PULSE 77; RESP 16; TEMP 37; O2SAT 100
--- OUTSIDE RECORDS SUMMARY | 2025-03-01 15:49 | XMS_ITS | Continuity of Care Document ---
Author Organization [facility] Address [address] [place] [address] Phone Care Team Providers Care Wing Mailer Machine Operator Name Role Phone Ishmael Spence MD Unavailable Unavailable Allergies, Adverse Reactions, Alerts Substance Reaction Status Criticality No Known Allergies Active No Inform ation Procedures Procedure Date OFFICE/OUTPATIENT VISIT, NEW Alcohol and/or drug screening 3 Advance Directives Directive Yes / No Effective Date File Name No Information Encounters Encounter Description Practice Location Reason(s) For Visit Diagnoses Date Provider Providers Copied on Encounter [facility], [address], [place], [place], [address] , tel: [phone] Urgent Care No Information 3 Jordy Quiñones. [address], [place], [place], [address] , [place]. tel: [phone] OFFICE/OUTPA TIENT VISIT, [facility] [employer], [address], [place], [place], [address] , tel: [phone] Urgent Care wrestling physical/b lood work (chief complaint) Encounter for other administrative examinationsEncounter for screening for infections with a predominantly sexual mode of transmissionEncounter for screening for HIVEncounter for screening for other disorder 3 Jordy Quiñones. [address], [place], [place], [address] , [place]. tel: [phone] Referring Provider: Ishmael Spence, [address], [place], [address] . tel:[phone] Family History Family Member Type Diagnosis Age At Onset No Information Payers Payer name Insurance type Covered constitution party ID Authoriza tion(s) No Information Social History [...]
--- NOTE | 2025-03-01 16:05 | PC.NURSE ---
PT DECLINED ICE FOR COMFORT
--- NOTE | 2025-03-01 16:28 | ED.UPPEXIN ---
HPI - Extremity Injury (Upper) General Chief Complaint: Extremity Injury, Upper Stated Complaint: Right Shoulder Injury Time Seen by Provider: 03/01/25 16:00 Source: patient Mode of arrival: ambulatory Limitations: no limitations History of Present Illness HPI narrative: 29 yo M presents with c/o pain to R shoulder for 2 days. Started hurting about 20 minutes after completing lateral raises. lifting 25lbs. did not increase weight but increase reps. no pain during activity. pain first day worse. little bit better today. has wrestling match this weekend. wants to make sure shoulder ok to wrestle. All systems reviewed and negative except as noted above. Related Data Home Medications ?Medication ?Instructions ?Recorded ?Confirmed ?Last Taken ?Type No Home Medications 03/01/25 03/01/25 Unknown History Allergies Allergy/AdvReac Type Severity Reaction Status Date / Time No Known Allergies Allergy Verified 01/23/24 14:17 Review of Systems Review of Systems: CONSTITUTIONAL: Denies fever, chills, or sweats. EYES: Denies visual changes, redness, or discharge. ENT: Denies rhinorrhea, congestion, sore throat, or otalgia. CARDIOVASCULAR: Denies chest pain, palpitations, or edema. RESPIRATORY: Denies cough or dyspnea. GASTROINTESTINAL: Denies abdominal pain, nausea, vomiting, or diarrhea. GENITOURINARY: Denies dysuria or hematuria. SKIN: Denies rash or itching. MUSCULOSKELETAL: Denies back pain, joint pain, or myalgia. Reports pain to right shoulder NEUROLOGIC: Denies headache, numbness, or weakness. PSYCHIATRIC: Denies anxiety or depression. All other systems reviewed are negative, except as documented in HPI. [facility] Past Medical History Medical History Anxiety Fracture of rib of right side Pneumothorax Surgical History Surgical History Adrian teeth extracted Social History Social History Smoking status: Former smoker Alcohol intake: unknown Substance use type: marijuana Gender identity (if verbalized by the patient): Male Comments At time of signature, agree with nursing past medical, surgical, social and family history. There is no relevant family history pertinent to the presenting complaint. Exam Narrative: GENERAL: This is a well-nourished, well-developed patient, in no apparent distress. HEAD: normocephalic, atraumatic. EYES: PERRL. Sclera clear/white. Vision is grossly intact. EARS: External ears normal NOSE: External nose normal NECK: Neck supple, non-tender without lymphadenopathy, masses or thyromegaly. CARDIOVASCULAR: Regular rate and rhythm without murmurs, gallops, or rubs. RESPIRATORY: Clear to auscultation. Breath sounds equal bilaterally. No wheezes, rales, or rhonchi. SKIN: warm, Dry, intact with no suspicious lesions or rash, good texture and turgor. NEURO: awake, alert, and oriented to person, place and time. There were no obvious focal neurologic abnormalities. EXTREMITIES: anterior shoulder pain at AC joint. mild swelling. ROM normal. painful when raises greater than 90 degree laterally. negative drop arm test. Course Course Level of Care: Express Care Visit Vital Signs Vital signs: Vital Signs Temperature 37.0 C 03/01/25 15:46 Pulse Rate 77 03/01/25 15:46 Respiratory Rate 16 03/01/25 15:46 Blood Pressure 120/76 03/01/25 15:46 Pulse Oximetry 100 03/01/25 15:46 Oxygen Delivery Room Air 03/01/25 15:46 Temperature 37.0 C 03/01/25 15:46 Pulse Rate 77 03/01/25 15:46 Respiratory Rate 16 03/01/25 15:46 Blood Pressure 120/76 03/01/25 15:46 Pulse Oximetry 100 03/01/25 15:46 Oxygen Delivery Room Air 03/01/25 15:46 Reviewed MDM - Extremity Injury (Upper) MDM Narrative Medical decision making narrative: xray of R shoulder normal. discussed result with pt. Recommend OTC pain meds. ice. rest. see PCP if pain not improving. Differential Diagnosis Differential diagnosis: Likely other (R shoulder sprain/strain, fracture) Imaging Data My impression: agree with radiologist Radiologist's impression: XR shoulder RT min 2V Ordering provider: Lori Pugh NP History: . pain after weight lighting . Comparison: None. FINDINGS: BONES: No acute fracture or dislocation. JOINT SPACES: The acromioclavicular joint is normal. The glenohumeral joint is normal. SOFT TISSUES: Normal. IMPRESSION: No acute osseous abnormality right shoulder. Discharge Plan Discharge Clinical Impression: Strain of muscle(s) and tendon(s) of the rotator cuff of right shoulder, initial encounter Patient Disposition: Home Condition: Stable Instructions: Shoulder Sprain (ED), Shoulder Pain (ED) Additional Instructions: The x-ray of your right shoulder was normal. Take ibuprofen or Tylenol every 6-8 hours as needed for pain. Apply ice as needed for pain. Follow-up with primary care physician if pain is not improving. Patient Language: Yakut Prescriptions: No Action No Home Medications Follow-up/Referrals: Jaun Jensen MD [Physician] - (establish care with a primary care physician) UNKNOWN,DOCTOR [Primary Care Provider] - Time of Disposition: 16:32
== END 2025-03-01 16:37 | disposition home or self-care (01) ==
PROVIDERS: Emergency Provider Nurse Practitioner Family
DX: S46.011A Strain of muscle(s) and tendon(s) of the rotator cuff of right shoulder, initial encounter (principal); X50.3XXA Overexertion from repetitive movements, initial encounter; Z87.891 Personal history of nicotine dependence; F12.90 Cannabis use, unspecified, uncomplicated
CPT/HCPCS: 73030; 99213; G0463

== ENCOUNTER 2025-04-02 16:12 | Emergency (ER) | payer OTHER, SELFPAY ==
--- OUTSIDE RECORDS SUMMARY | 2025-04-02 16:14 | XMS_ITS | Clinical Summary ---
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
--- OUTSIDE RECORDS SUMMARY | 2025-04-02 16:14 | XMS_ITS | Clinical Summary ---
Author Organization [facility] Address [address] [place] [address] Phone Care Team Providers Care Highway Truck Driver Name Role Phone Breezy Russell MD Unavailable Deepak Hugo APRN, CYBER SECURITY ANALYST Primary Care Pr ovider Allergies Active Allergy Reactions Criticality Noted Date Comments Cinnamon Nausea Low 08/12/2021 [place] (Diagnostic) Swelling,Other ( see Comments) Medium 04/12/2024 [...] Department Care Team Description 02/20/2025 Results Follow-Up [facility] - Family Medicine [facility] [address] [place] [address] Unique Mcgraw, PLUSH FINISHER, CYBER SECURITY ANALYST XR LUMBAR SPINE MINIMUM 4 VIEWS 02/07/2025 11:30 AM CDT - 02/07/2025 11:59 PM CDT Hospital [facility] [address] [place] [address] Unique Mcgraw, PLUSH FINISHER, CYBER SECURITY ANALYST Discharge Disposition: Discharged to home or Selfcare 02/07/2025 Travel 01/04/2025 1:30 PM CDT Office Visit [facility] - [place] [address] [place] [address] Unique Mcgraw, PLUSH FINISHER, CYBER SECURITY ANALYST Right lumbar pain (Primary Dx); Insomnia, unspecified type Discharge Disposition: Discharged to home or Selfcare 01/04/2025 Travel from Last 3 Months Immunizations Immunization Administration Dates Next Due Covid-19 Vaccine, Vector-nr, Rs-ad26, Pf, 0.5 Ml (Netscape/[employer]) 04/10/2021 Family History Medical History Relation Name [...] drink = 0.6 oz pur e alcohol) [facility] Utilities Answer Date Recorded In the past 12 months has [employer], oil, or water [employer] threatened to shut off services in your home? No 04/12/2024 Social Connection and Isolation Panel Answer Date Recorded In a typical week, how many times do you talk on the phone with family, friends, or neighbors? Three times a week 04/12/2024 How often do you get togethe r with friends or relatives? Once a week 04/12/2024 How often do you attend chur or uatsdin services? Never 04/12/2024 Do you belong to any clubs o r organizations such as jew groups, unions, fraternal or athletic groups, or [...] 1-9 0 06/0 01/2022 [facility] - Occupational Stress Questionnaire Answer Date [...] any time in the past 12 m [facility], were you homeless or living in a mcfp (including now)? No 04/12/2024 Sexually Active Control [...] Visit [facility] [address] [place] [address] Deepak Hugo, PLUSH FINISHER, CYBER SECURITY ANALYST [address] [address] Health Maintenance Due Date Last Done Comments TdaP Immunization 1995 Hepatitis B Immunization (1 of 3 - 19+ 3-dose series) 12/29/2014 Human Papillomavirus (HPV) Immunization (1 - 3-dose SCDM series) 12/29/2022 SARS-COV-2 Immunization ( season) 2024 04/10/2021 Influenza [...] this topic Medical Devices Implanted Type Area Grants Analyst Device Identifier Shelf Expiration Date Model / Serial / Lot Staple Tacker [employer] At - [id number] Implanted:Qty : 1 on 03/30/2023 by Breezy Russell MD at [facility] IMPLANT Bilateral: Inguinal [employer] 10/14/2024 [id number] / [id number] / [id number] Mesh Srg 3dmax 6x4in Groin Right Contour Seal Edge Strl Polyp Lg 3d Curve Lapscp Inguinal Hernia - [id number] Implanted:Qty : 1 on 03/30/2023 by Breezy Russell MD at [facility] IMPLANT Left: Inguinal [employer] 10/14/2027 [id number] / [id number] / [id number] Mesh Srg 3dmax 6x4in Groin Left Contour Seal Edge Strl Polyp Lg 3d Curve Lapscp Inguinal Hernia - [id number] Implanted:Qty : 1 on 03/30/2023 by Breezy Russell MD at [facility] IMPLANT Right: Inguinal [employer] 10/14/2027 [id number] / [id number] / [id number] Procedures Procedure Name Priority Date/Time Associated Diagnosis Comments XR LUMBAR SPINE MINIMUM 4 VIEWS Routine 02/07/2025 12:23 PM CDT Right lumbar pain HEPATITIS PANEL ACUTE (AHP) Routine 08/12/2021 2:09 PM SENIOR PRODUCTION MANAGER Visit for annual health examination (Adult) from [...] Dakota Rodríguez D.O. AP: AP Report ID: [id number] Reading Location: [id number] Procedure Note Dakota Rodríguez DO - 02/17/2025 [...] Dakota Rodríguez D.O. AP: AP Report ID: [id number] Reading Location: [place] [address] IMPRESSION: Lumbar vertebral body heights and anterior-posterior alignment are similar when compared to the previous radiographs dated 04/04/2017. Unique N Mariluz PLUSH FINISHER, [place] IMG DIAGNOSTIC ORDERABLES Final Result * HEPATITIS PANEL ACUTE (AHP) (08/12/2021 2:09 PM SENIOR PRODUCTION MANAGER) HEPATITIS A IGM ANTIBODY NON DETECTED NON DETECTED [address] B 08/12/2021 11:14 PM SENIOR PRODUCTION MANAGER [facility] Comment: IGM Antibodies to HAV not detected. Does not exclude early acute or recovered HAV infection. HEP B CORE AB (IGM) NON DETECTED NON DETECTED [address] 08/12/2021 11:14 PM SENIOR PRODUCTION MANAGER [facility] Comment:IGM anti-HBC not det ected. Does not exclude the possibility of exposure to or infection with HBV. HEPATITIS B SURFACE ANTIGEN NON DETECTED NON DETECTED [address] 08/12/2021 11:14 PM [facility] Comment:A nonreactive test r esult does not exclude the possibility of exposure to or infection with Hepatitis B virus. A nonreactive test result in individuals with prior exposure to hepatitis B may be due to antigen levels below the detection limit of this assay or lack of antigen reactivity to the antibodies in this assay. hepatitis C antibody 0.21 <1 S/[place] [id number] B 08/12/2021 11:14 PM SENIOR PRODUCTION MANAGER [facility] Comment: Signal/Cutoff ratio < 0.79 is Nondetected Signal/Cutoff ratio 0.80-0.99 is Grayzone Signal/Cutoff ratio > 0.99 is Detected Supplemental assays are recommended if signal/cutoff ratio is >/=1.00. Signal/cutoff ratio result >/= 5.00 is 97% predictive of positivity for recombinant immunoblot assay (RIBA) and will be reported to the [place] Department of Public Health as required. Blood Venipuncture / Unknown 08/12/2021 2:09 PM SENIOR PRODUCTION MANAGER 08/12/2021 2:09 PM SENIOR PRODUCTION MANAGER us Rubio Baum MD HEMATOLOGY ORDERABLES Final Resu lt [facility] [address] [place] [address], [place] from Last 3 Months or Most Recently Relevant to Health Maintenance Insurance MEDICAID [employer] MEDPAY NELSY OLIVEIRA [id number] Advance Directives * Full Code (Latest Code Status on File) Date Activated Date Inactivated Comments 02/03/2021 9:04 PM 02/08/2021 8:40 PM CPR-Full Aime atment: FULL ARREST: Attempt Resuscitation/CPR wit intubation and mechanical ventilation. PRE-ARREST: Use entire range of life support measures to stabilize the patient. Care Teams Highway Truck Driver Relationship Specialty Start Date End Date Deepak Hugo APRN, CYBER SECURITY ANALYST [address] [facility] [address] [place] [address] PCP - General Advanced Practice Nurse 04/12/24 Breezy Russell MD [address] [facility] [address] [place] [address] Consulting Physician Colon and Rectal Surgery 03/13/23
--- OUTSIDE RECORDS SUMMARY | 2025-04-02 16:14 | XMS_ITS | Continuity of Care Document ---
Author Organization [facility] Address [address] [place] [address] Phone Care Team Providers Care All Purpose Clerk Name Role Phone Ishmael Spence MD Unavailable Unavailable Allergies, Adverse Reactions, Alerts Substance Reaction Status Criticality No Known Allergies Active No Inform ation Procedures Procedure Date OFFICE/OUTPATIENT VISIT, NEW Alcohol and/or drug screening 3 Advance Directives Directive Yes / No Effective Date File Name No Information Encounters Encounter Description Practice Location Reason(s) For Visit Diagnoses Date Provider Providers Copied on Encounter [facility], [address], [place], [place], [address] , tel: [phone] Urgent Care No Information 3 Jordy Quiñones. [address], [place], [place], [address] , [place]. tel: [phone] OFFICE/OUTPA TIENT VISIT, [facility] [employer], [address], [place], [place], [address] , tel: [phone] Urgent Care wrestling physical/b lood work (chief complaint) Encounter for other administrative examinationsEncounter for screening for infections with a predominantly sexual mode of transmissionEncounter for screening for HIVEncounter for screening for other disorder 3 Jordy Quiñones. [address], [place], [place], [address] , [place]. tel: [phone] Referring Provider: Ishmael Spence, [address], [place], [address] . tel:[phone] Family History Family Member Type Diagnosis Age At Onset No Information Payers Payer name Insurance type Covered republican ID Authoriza tion(s) No Information Social History [...]
--- OUTSIDE RECORDS SUMMARY | 2025-04-02 16:14 | XMS_ITS | Clinical Summary ---
Author Organization [facility] Address [address] [place] [address] Care Team Providers Care Ornament Maker Hand Name Role Phone Anant Ken MD Primary Care Provider [phone] Source Comments [facility],non-[facility] Affiliates and Associated Physician Practices is amultiple site organization consisting of ambulatory clinics and hospital sitesin [place], [place], [place] and [place]. This disclosure is being madepursuant to the Care Everywhere program and may not contain all information available regarding this patient. Last updated 18.[facility] Social History Tobacco Use Types Packs/Day Years [...] this topic Insurance MEDICAID - [place] [facility] Address: [facility] [id number] [place] [address] [employer] MEDICAID - OUT OF STATE Care Teams Ornament Maker Hand Relationship Specialty Start Date End Date Anant Ken MD [address] [place] [address] PCP - General 09/20/19
--- OUTSIDE RECORDS SUMMARY | 2025-04-02 16:16 | XMS_ITS | Continuity of Care Document ---
Author Organization [facility] Address [address] [place] [address] Phone Care Team Providers Care Office Asst Name Role Phone Ishmael Spence MD Unavailable Unavailable Allergies, Adverse Reactions, Alerts Substance Reaction Status Criticality No Known Allergies Active No Inform ation Procedures Procedure Date OFFICE/OUTPATIENT VISIT, NEW Alcohol and/or drug screening 3 Advance Directives Directive Yes / No Effective Date File Name No Information Encounters Encounter Description Practice Location Reason(s) For Visit Diagnoses Date Provider Providers Copied on Encounter [employer] [facility], [address], [place], [place], [address] , tel: [phone] Urgent Care No Information 3 Jordy Quiñones. [address], [place], [place], [address] , [place]. tel: [phone] OFFICE/OUTPA TIENT VISIT, [facility] [facility], [address], [place], [place], [address] , tel: [phone] Urgent Care wrestling physical/b lood work (chief complaint) Encounter for other administrative examinationsEncounter for screening for infections with a predominantly sexual mode of transmissionEncounter for screening for HIVEncounter for screening for other disorder 3 Jordy Quiñones. [address], [place], [place], [address] , [place]. tel: [phone] Referring Provider: Ishmael Spence, [address], [place], [address] . tel:[phone] Family History Family Member Type Diagnosis Age At Onset No Information Payers Payer name Insurance type Covered democrat ID Authoriza tion(s) No Information Social History [...]
[2025-04-02 16:25] VITALS: BP 133/67; PULSE 60; RESP 18; TEMP 36.4; O2SAT 100
--- NOTE | 2025-04-02 16:34 | ED.GENADULT ---
HPI - General Adult General Chief complaint: Dental/Oral Stated complaint: Toothache Source: patient Mode of arrival: ambulatory Limitations: no limitations History of Present Illness HPI narrative: Pt presents for evaluation of left lower dental pain. Symptom onset yesterday. He has a cracked tooth in the affected area. He rates his symptoms as 4/10 in severity at the present time but has high as 9/10 yesterday. He states pain is aching. No fever, chills, nausea, vomiting. He uses marijuana but denies not smoke tobacco. He tried 800 mg ibuprofen for his symptoms. In the past he has taken abx for similar symptoms and pain improved. Related Data Allergies Allergy/AdvReac Type Severity Reaction Status Date / Time bee stings Allergy Mild Swelling Uncoded 04/02/25 16:24 Review of Systems Review of Systems: CONSTITUTIONAL: Denies fever, chills, or sweats. EYES: Denies visual changes, redness, or discharge. ENT: Reports left lower dental pain. Denies rhinorrhea, congestion, sore throat, or otalgia. CARDIOVASCULAR: Denies chest pain, palpitations, or edema. RESPIRATORY: Denies cough or dyspnea. GASTROINTESTINAL: Denies abdominal pain, nausea, vomiting, or diarrhea. GENITOURINARY: Denies dysuria or hematuria. SKIN: Denies rash or itching. MUSCULOSKELETAL: Denies back pain, joint pain, or myalgia. NEUROLOGIC: Denies headache, numbness, dizziness, or weakness. PSYCHIATRIC: Denies anxiety or depression. PMFSH Past Medical History Medical History Pneumothorax Fracture of rib of right side Anxiety Surgical History Surgical History Merigold teeth extracted Family History Family History Mother Family history non-contributory Social History Social History Smoking status: Former smoker Alcohol intake: unknown Substance use type: marijuana Gender identity (if verbalized by the patient): Male Exam Narrative: GENERAL: Well-appearing, well-nourished, and in no acute distress. HEAD: Normocephalic, atraumatic. EYES: PERRLA and EOMI. ENT: Nares clear, no rhinorrhea or epistaxis. Mucous membranes moist. Tooth #17 is fractured. There is no visible or palpable abscess. Oropharynx without tonsillar hypertrophy exudate or other lesions. Bilateral TMs pearly dyer nonbulging NECK: Supple. No adenopathy or masses. No carotid bruits or JVD CHEST: Clear to auscultation. No respiratory distress. No wheezes rales or rhonchi HEART: Regular rate and rhythm. No murmur heard. Normal peripheral pulses. ABDOMEN: Soft, nontender, nondistended, normal active bowel sounds. EXTREMITIES: Normal range of motion. No edema. SKIN: Warm, dry, no rash. NEURO: No focal deficits. Alert and oriented x3. PSYCH: Normal mood and affect. Course Course Emergency Course: This is a 29-year-old male who presented for evaluation of left lower dental pain. He has a dental fracture in the affected area. He will continue take [id number] agents for pain control. Start penicillin. Follow-up with dentist. Go to the ER for worsening symptoms. Patient in agreement with plan of care. Level of Care: Express Care Visit Vital Signs Vital signs: Vital Signs Temperature 36.4 C L 04/02/25 16: Pulse Rate 60 04/02/25 16:25 Respiratory Rate 18 04/02/25 16:25 Blood Pressure 133/67 04/02/25 16:25 Pulse Oximetry 100 04/02/25 16:25 Oxygen Delivery Room Air 04/02/25 16:25 Temperature 36.4 C L 04/02/25 16:25 Pulse Rate 60 04/02/25 16:25 Respiratory Rate 18 04/02/25 16:25 Blood Pressure 133/67 04/02/25 16:25 Pulse Oximetry 100 04/02/25 16:25 Oxygen Delivery Room Air 04/02/25 16:25 Medical Decision Making Vital Signs Vital Signs: Vital Signs Temperature 36.4 C L 04/02/25 16:25 Pulse Rate 60 04/02/25 16:25 Respiratory Rate 18 04/02/25 16:25 Blood Pressure 133/67 04/02/25 16:25 Pulse Oximetry 100 04/02/25 16:25 Oxygen Delivery Room Air 04/02/25 16:25 Temperature 36.4 C L 04/02/25 16:25 Pulse Rate 60 04/02/25 16:25 Respiratory Rate 18 04/02/25 16:25 Blood Pressure 133/67 04/02/25 16:25 Pulse Oximetry 100 04/02/25 16:25 Oxygen Delivery Room Air 04/02/25 16:25 Discharge Plan Discharge Clinical Impression: Fracture of tooth Patient Disposition: Home Condition: Stable Instructions: Antibiotic Form, Toothache (ED) Patient Language: Bhutanese Prescriptions: New penicillin V potassium 500 mg tablet 500 mg PO Q6H 10 Days Qty: 40 0RF Follow-up/Referrals: Keven Pollock MD [Physician] - Time of Disposition: 16:33
== END 2025-04-02 16:44 | disposition home or self-care (01) ==
PROVIDERS: Emergency Provider Nurse Practitioner
DX: S02.5XXA Fracture of tooth (traumatic), initial encounter for closed fracture (principal); X58.XXXA Exposure to other specified factors, initial encounter; F12.90 Cannabis use, unspecified, uncomplicated; Z87.891 Personal history of nicotine dependence
CPT/HCPCS: 99213; G0463